=== PATIENT | female | born 1995 | race African-American/Black ===

== ENCOUNTER 2016-09-06 05:44 | Emergency (ER) | payer OTHER ==
[2016-09-06] MEDS ORDERED: ONDANSETRON 4 MG/2 ML VIAL IVP STA (05:56)
[2016-09-06] MEDS ORDERED: ACETAMINOPHEN 325 MG TABLET PO STA (05:56)
[2016-09-06] MEDS ORDERED: SODIUM CHLORIDE 0.9% 1,000 ML IV ONE (05:56)
[2016-09-06] MEDS ORDERED: ONDANSETRON 4 MG/2 ML VIAL ONE (06:11)
[2016-09-06] MEDS ORDERED: ACETAMINOPHEN 325 MG TABLET PO ONE (06:11)
== END 2016-09-06 07:18 | disposition home or self-care (01) ==
DX: O98.812 Other maternal infectious and parasitic diseases complicating pregnancy, second trimester (principal); K52.9 Noninfective gastroenteritis and colitis, unspecified; Z3A.21 21 weeks gestation of pregnancy
CPT/HCPCS: 81003; 81025; 96374; 99283; 99284; A9270

== ENCOUNTER 2017-05-26 13:58 | Emergency (ER) | payer OTHER ==
[2017-05-26 14:16] VITALS: BP 104/77
[2017-05-26 15:18] LABS: ALBUMIN/GLOBULIN RATIO 1.1 (1.0-2.2); BILIRUBIN,TOTAL 0.7 mg/dL (0.2-1.0); CALCIUM 8.6 mg/dL (8.5-10.3); CREATININE 0.7 mg/dL (0.4-1.0); POTASSIUM 3.6 mmol/L (3.5-5.0); TOTAL PROTEIN 7.8 g/dL (6.7-8.2)
[2017-05-26 16:05] LABS: BASOPHILS % (AUTO) 0.1 %; EOSINOPHILS % (AUTO) 0.3 %; HCT - HEMATOCRIT 39.3 % (37.0-47.0); HGB - HEMOGLOBIN 13.6 g/dL (12.0-16.0); LYMPHOCYTES # (AUTO) 0.8 10^3/uL (1.5-3.5); LYMPHOCYTES % (AUTO) 14.8 %; MEAN CORPUSCULAR HEMOGLOBIN 31.1 pg (27.0-31.0); MEAN CORPUSCULAR HGB CONC 34.5 g/dL (32.0-36.0); MEAN CORPUSCULAR VOLUME 90.1 fL (81.0-99.0); MEAN PLATELET VOLUME 6.7 fL (7.9-10.8); MONOCYTES # (AUTO) 0.2 10^3/uL (0.0-1.0); MONOCYTES % (AUTO) 3.4 %; NEUTROPHILS # (AUTO) 4.4 10^3/uL (1.5-6.6); NEUTROPHILS % (AUTO) 81.4 %; RED BLOOD COUNT 4.36 10^6/uL (4.20-5.40); RED CELL DISTRIBUTION WIDTH 12.5 % (12.0-15.0); UNCORRECTED WHITE BLOOD COUNT 5.4 x10^3/uL; WHITE BLOOD COUNT 5.4 x10^3/uL (4.8-10.8)
== END 2017-05-26 19:11 | disposition left against medical advice (07) ==
LOC: ED 13:58
DX: Z53.21 Procedure and treatment not carried out due to patient leaving prior to being seen by health care provider (principal)
CPT/HCPCS: 36415; 80053; 83690; 84703; 85025

== ENCOUNTER 2017-07-25 05:10 | Emergency (ER) | payer OTHER ==
[2017-07-25 05:18] VITALS: BP 108/68
[2017-07-25] MEDS ORDERED: POLYMYXIN B/TRIMETH OPHTH DROPS ONE (05:32)
--- NOTE | 2017-07-25 05:34 | ED Physician Documentation ---
PD HPI OPHTHO - Stated complaint Stated Complaint: LT EYE CRUSTY - Chief complaint Chief Complaint: General - History obtained from History obtained from: Patient - History of Present Illness Timing - onset: Yesterday Timing - details: Gradual onset, Still present Location: Left Quality / character: Itching Associated symptoms: Redness, Swelling, Discharge, Matting Similar symptoms before: Work up / diagnostics, Treatment Recently seen: Not recently seen - Additional information Additional information: Patient is a 22 year old female with no significant past medical history who is presenting to the emergency department for discharge and matting of her left eye. patient states that she woke up with the symptoms. Patient has had the symptoms once before. Patient works as a medical scheduler. there is another employee with similar symptoms. Review of Systems Constitutional: denies: Fever, Chills Eyes: reports: Discharge, Irritation. denies: Decreased vision Ears: reports: Reviewed and negative Nose: reports: Reviewed and negative Throat: reports: Reviewed and negative Cardiac: reports: Reviewed and negative Respiratory: reports: Reviewed and negative GI: reports: Reviewed and negative : reports: Reviewed and negative Skin: reports: Reviewed and negative Musculoskeletal: reports: Reviewed and negative Neurologic: reports: Reviewed and negative Psychiatric: reports: Reviewed and negative Immunocompromised: denies: Immunocompromised PD PAST MEDICAL HISTORY - Past Medical History Past Medical History: No Cardiovascular: None Respiratory: None Neuro: None Endocrine/Autoimmune: None GI: None [employer]: None : None HEENT: None Psych: None Musculoskeletal: None Derm: None - Past Surgical History Past Surgical History: No - Present Medications Home Medications: Ambulatory Orders Medication Instructions Recorded Confirmed No Known Home Medications [No 05/26/17 05/26/17 Known Home Medications] - Allergies Allergies/Adverse Reactions: Allergies Allergy/AdvReac Type Severity Reaction Status Date / Time No Known Drug Allergies Allergy Verified 07/25/17 05:18 - Social History Does the pt smoke?: Yes Smoking Status: Current every day smoker Does the pt drink ETOH?: No Does the pt have substance abuse?: No - Immunizations Immunizations are current?: Yes - POLST Patient has POLST: No PD ED PE NORMAL - Vitals Vital signs reviewed: Yes - General General: Alert and oriented X 3, No acute distress - HEENT HEENT: Atraumatic, PERRL, Ears normal, Pharynx benign - Cardiac Cardiac: RRR - Respiratory Respiratory: No respiratory distress - Abdomen Abdomen: Non distended - Derm Derm: Normal color, Warm and dry - Extremities Extremities: No deformity - Neuro Neuro: Alert and oriented X 3, No motor deficit, Normal speech PD ED PE EXPANDED - Eyes Eyes: Left eye (mild erythema and scant discharge (eye had been cleaned)) Results - Vitals Vitals: Vital Signs - 24 hr 07/25/17 05:16 Heart Rate 85 Respiratory 17 Rate Blood Pressure 108/68 O2 Saturation 100 Oxygen O2 Source Room air PD MEDICAL DECISION MAKING - ED course Complexity details: reviewed old records, reviewed results, re-evaluated patient , considered differential, d/w patient ED course: Patient was seen and examined at bedside. patient's old charts were reviewed and patient had been treated for similar symptoms in the past. Patient was treated with polytrim. Patient required no further work up and was stable for discharge with outpatient follow up. Departure - Departure Disposition: Home, Self Care Clinical Impression: Conjunctivitis of left eye Condition: Good Instructions: ED Conjunctivitis Bacterial Follow-Up: primary,care provider [Other] - Within 3 Days Comments: Your symptoms today are being caused by bacterial conjunctivitis. You should use your eye drops 4 times a day. You should wash your hands prior to an interaction with another person. You should follow up with your doctor if your symptoms persist. You may return to the emergency department at any time for new, worsening or uncontrollable symptoms.
== END 2017-07-25 05:30 | disposition home or self-care (01) ==
LOC: ED 05:10
DX: H10.89 Other conjunctivitis (principal); B96.89 Other specified bacterial agents as the cause of diseases classified elsewhere; F17.200 Nicotine dependence, unspecified, uncomplicated
CPT/HCPCS: 99282; 99283; A9270